=== PATIENT | male | born 1985 | race African-American/Black ===

== ENCOUNTER 2016-10-13 22:43 | Emergency (ER) | payer SELFPAY ==
[~2016-10-13] VITALS: Ht 182.9 cm; Wt 65.8 kg
[~2016-10-13 22:43] MED LIST: BUTA1CAP29 PO; CEPH-264 PO
[2016-10-13 22:55] VITALS: BP 161/80
[2016-10-13] MEDS ORDERED: ONDA4TAB10 SL (23:12)
[2016-10-13] MEDS ORDERED: FAMO-63 PO (23:12)
--- NOTE | 2016-10-13 23:12 | PHYS DOC ---
Past Medical History Past Medical History: Other Additional Past Medical Histor: HEADACHES, HX OF SKIN ABSCESSES Past Surgical History: No Surgical History Alcohol Use: Occasionally Additional Information: STATES DRANK APPROX HALF A PINT OF HENESSEY TODAY Drug Use: Marijuana Adult General Chief Complaint Chief Complaint: HEMATEMESIS/VOMITING BLOOD HPI HPI Patient is a 30 year old male who presents with complaint hematemesis. Patient states that he had one episode prior to arrival. Patient admits that earlier today he drank approximately half of the bottle of cognac. Patient states that he does not drink on a regular basis and he was drinking socially. Patient denies any lightheadedness, fever, shortness of breath, or chest pain currently. Patient states that he feels slightly nauseous but states that he feels better after vomiting. Patient states that he had bright red blood in his vomit which is what caused him concern. Patient denies any known gastrointestinal problems and patient is not currently on any blood thinners or NSAIDs. Review of Systems Review of Systems Constitutional: Denies fever or chills [] Eyes: Denies change in visual acuity, redness, or eye pain [] HENT: Denies nasal congestion or sore throat [] Respiratory: Denies cough or shortness of breath [] Cardiovascular: No additional information not addressed in HPI [] GI: Nausea, hematemesis, denies bloody stools or diarrhea [] : Denies dysuria or hematuria [] Musculoskeletal: Denies back pain or joint pain [] Integument: Denies rash or skin lesions [] Neurologic: Denies headache, focal weakness or sensory changes [] Current Medications Current Medications Current Medications Medications (Trade) Dose Ordered Sig/[facility] Start Time Stop Time Status Last Admin Dose Admin Ondansetron HCl (Zofran Odt) 4 mg 1X ONCE 10/13/16 23:15 10/13/16 23:16 DC 10/13/16 23:17 4 MG Allergies Allergies Allergies Coded Allergies Type Severity Reaction Last Updated Verified Sulfa (Sulfonamide Antibiotics) Allergy Intermediate swelling 11/26/14 No Physical Exam Physical Exam Constitutional: Alert, afebrile, no acute distress. [] HENT: Normocephalic, atraumatic, bilateral external ears normal, oropharynx moist, no oral exudates, nose normal. [] Eyes: PERRLA, EOMI, conjunctiva normal, no discharge. [] Neck: Normal range of motion, no tenderness, supple, no stridor. [] Cardiovascular:Heart rate regular rhythm, no murmur [] Lungs & Thorax: Bilateral breath sounds clear to auscultation [] Abdomen: Bowel sounds normal, soft, mild epigastric tenderness to palpation, no guarding or rebound tenderness, no masses, no pulsatile masses. [] Skin: Warm, dry, no erythema, no rash. [] Back: No tenderness, no CVA tenderness. [] Extremities: No tenderness, no cyanosis, no clubbing, ROM intact, no edema. [] Neurologic: Alert and oriented X 3, normal motor function, normal sensory function, no focal deficits noted. [] Current Patient Data Vital Signs Vital Signs Date Time Temp Pulse Resp B/P Pulse Ox O2 Delivery O2 Flow Rate FiO2 10/13/16 22:55 97.9 84 15 161/80 100 Room Air 97.9 EKG EKG Not performed [] Radiology/Procedures Radiology/Procedures Not performed [] Course & Med Decision Making Course & Med Decision Making Pertinent Labs and Imaging studies reviewed. (See chart for details) Patient appears nontoxic on exam. The patient's symptoms are likely due to recent heavy alcohol consumption. I suspect patient has developed alcoholic gastritis resulting in the patient's episode hematemesis. Patient was given Zofran in the emergency department with improvement in his nausea. The patient was recommended to continue with Pepcid and Zofran as outpatient and to continue with oral fluids. Advised follow-up in 3-4 days if symptoms not improving and return to emergency department for any worsening symptoms. Patient voiced understanding and in agreement with treatment plan. Dragon Disclaimer Dragon Disclaimer This electronic medical record was generated, in whole or in part, using a voice recognition dictation system. Departure Departure Impression: Primary Impression: Gastritis Additional Impression: Nausea and vomiting Disposition: 01 HOME, SELF-CARE Condition: STABLE Referrals: NO PCP (PCP) Patient Instructions: Alcoholic Gastritis-Brief, Nausea and Vomiting Additional Instructions: Follow-up with your primary doctor in 3-4 days of symptoms are not improving. Return to the emergency department for any worsening symptoms. Scripts Famotidine (Pepcid)20 Mg [id number] Mg PO BID #15 TAB Prov:RUBENS GERARDO MD 10/13/16 Ondansetron (Zofran Odt)4 Mg Tab.rapdis1 Tab SL Q8HRS PRN NAUSEA/VOMITING #15 TAB Prov:RUBENS GERARDO MD 10/13/16 Problem Qualifiers Primary Impression: Gastritis Gastritis type: alcoholic Chronicity: acute Gastritis bleeding: with bleeding Qualified Code: K29.21 - Alcoholic gastritis with bleeding Additional Impression: Nausea and vomiting Vomiting type: hematemesis Qualified Code: K92.0 - Hematemesis RUBENS GERARDO MD Oct 13, 2016 23:12
[2016-10-13] MEDS ORDERED: ONDANSETRON ODT 4 MG TAB.RAPDIS PO ONE (23:15)
== END 2016-10-13 23:22 | disposition home or self-care (01) ==
LOC: ER 22:43
DX: K29.21 Alcoholic gastritis with bleeding (principal); F12.10 Cannabis abuse, uncomplicated; Z88.2 Allergy status to sulfonamides
CPT/HCPCS: 99284; Q0162

== ENCOUNTER 2017-01-05 12:13 | Emergency (ER) | payer SELFPAY ==
[~2017-01-05] VITALS: Ht 165.1 cm; Wt 63.5 kg
[~2017-01-05 12:13] MED LIST changes: +FAMO-63 PO; +ONDA4TAB10 SL
[2017-01-05 12:16] VITALS: BP 129/78
--- NOTE | 2017-01-05 12:55 | PHYS DOC ---
Past Medical History Past Medical History: Other Additional Past Medical Histor: HEADACHES, HX OF SKIN ABSCESSES Past Surgical History: No Surgical History Alcohol Use: Occasionally Drug Use: Marijuana Adult General Chief Complaint Chief Complaint: COUGH HPI HPI Patient is a 31 year old male who states "I believe I may have been exposed to tuberculosis". Patient states he is homeless and this month he met a man who states that he is being treated for tuberculosis. This man is in the same homeless fdc and they "shook hands and shared a cigarette". He first met this man about 3-4 weeks ago. The man does not appear to be ill and is not under any kind of quarantine as far as the patient knows. After he met this man he noticed that he had some vomiting and also a cough, neither of those really would've worried him except that he met this man who stated he was being treated for tuberculosis. The patient is in good health. He smokes cigarettes. He states he did have a TB skin test about 3 or 4 years ago when he was in care home and it was negative. Patient is homeless. He has no PCP. Review of Systems Review of Systems Constitutional: Denies fever or chills [] Respiratory: As in history of present illness GI: He has had some intermittent vomiting for 3-4 weeks Allergies Allergies Allergies Coded Allergies Type Severity Reaction Last Updated Verified Sulfa (Sulfonamide Antibiotics) Allergy Intermediate swelling 11/26/14 No Physical Exam Physical Exam Constitutional: Well developed, well nourished, no acute distress, non-toxic appearance. Alert, mentating normally, doing something on his phone when I came into the room. HENT: Normocephalic, atraumatic, bilateral external ears normal, nose normal. [ ] Eyes: conjunctiva normal, no discharge. [] Neck: Normal range of motion, no stridor. [] Cardiovascular:Heart rate regular rhythm, no murmur [] Lungs & Thorax: Bilateral breath sounds clear to auscultation [] Skin: Warm, dry, no erythema, no rash. [] Extremities: No tenderness, no cyanosis, no clubbing, ROM intact, no edema. [] Neurologic: Alert and oriented X 3, normal motor function, normal sensory function, no focal deficits noted. [] EKG EKG [] Radiology/Procedures Radiology/Procedures [] Course & Med Decision Making Course & Med Decision Making Pertinent Labs and Imaging studies reviewed. (See chart for details) 31-year-old homeless male presents with the concern that he has been exposed to a person who stated that he was being treated for TB. I discussed with the patient the fact that people who have active, contagious TB are different subset who are quarantined, and the person may be under "treatment" but not likely actively contagious. I discussed with the patient following up with the health department for follow-up and he will be able to do that and is agreeable to that plan. [] Dragon Disclaimer Dragon Disclaimer This electronic medical record was generated, in whole or in part, using a voice recognition dictation system. Departure Departure Impression: Primary Impression: Cough in adult patient Additional Impression: Contact with and (suspected) exposure to tuberculosis Disposition: 01 HOME, SELF-CARE Condition: STABLE Referrals: NO PCP (PCP) Patient Instructions: Smoking, You Can Quit, [id number] Additional Instructions: As we discussed, I recommend that you follow-up with the health Department on Saturday and discuss your concerns with them. You may want to have a TB skin test and they can provide that for you. Health Department Phone Number: Problem Qualifiers HARISH REINA MD Jan 05, 2017 12:55
--- NOTE | 2017-01-05 13:00 | RAD ---
EXAM: Chest 2 views. HISTORY: Cough. COMPARISON: 05/22/2012. FINDINGS: Frontal and lateral views of the chest are obtained. There are no confluent infiltrates. There is no pneumothorax or pleural effusion. The heart is not enlarged. IMPRESSION: 1. No confluent infiltrates.
== END 2017-01-05 13:02 | disposition home or self-care (01) ==
LOC: ER 12:13
DX: Z20.1 Contact with and (suspected) exposure to tuberculosis (principal); F12.10 Cannabis abuse, uncomplicated; R05 Cough; R11.10 Vomiting, unspecified; F17.200 Nicotine dependence, unspecified, uncomplicated; Z88.2 Allergy status to sulfonamides
CPT/HCPCS: 71020; 99284

== ENCOUNTER 2017-12-02 10:56 | Emergency (ER) | payer MEDICAID ==
[2017-12-02 12:36] LABS: ADD MAN DIFF? NO
[2017-12-02 12:43] LABS: BASO # 0.1 x10^3/uL (0.0-0.2); BASO % 1 % (0-3); EOS # 0.1 x10^3/uL (0.0-0.7); EOS % 2 % (0-3); HEMATOCRIT 36.8 % (39.0-53.0); HEMOGLOBIN 12.5 g/dL (13.0-17.5); LYMPH # 1.7 x10^3/uL (1.0-4.8); LYMPH % 26 % (24-48); MEAN CORPUSCULAR HEMOGLOBIN 28 pg (25-35); MEAN CORPUSCULAR HGB CONC 34 g/dL (31-37); MEAN CORPUSCULAR VOLUME 84 fL (79-100); MONO # 0.7 x10^3/uL (0.0-1.1); MONO % 11 % (0-9); NEUT # 3.9 x10^3uL (1.8-7.7); NEUT % 60 % (31-73); PLATELET COUNT 218 x10^3/uL (140-400); RED BLOOD COUNT 4.39 x10^6/uL (4.30-5.70); RED CELL DISTRIBUTION WIDTH 12.8 % (11.5-14.5); WHITE BLOOD COUNT 6.6 x10^3/uL (4.0-11.0)
[2017-12-02 12:48] LABS: ANION GAP 8 (6-14); BLOOD UREA NITROGEN 13 mg/dL (8-26); BUN/CREATININE RATIO 16 (6-20); CALCIUM 8.9 mg/dL (8.5-10.1); CARBON DIOXIDE 26 mmol/L (21-32); CHLORIDE 106 mmol/L (98-107); CREATININE 0.8 mg/dL (0.7-1.3); GFR 135.6; GLUCOSE 97 mg/dL (70-99); POTASSIUM 3.8 mmol/L (3.5-5.1); SODIUM 140 mmol/L (136-145)
[2017-12-02 12:54] LABS: ALBUMIN 3.7 g/dL (3.4-5.0); ALBUMIN/GLOBULIN RATIO 0.9 (1.0-1.7); ALK PHOS 84 U/L (46-116); ALT (SGPT) 33 U/L (16-63); AST (SGOT) 26 U/L (15-37); TOTAL BILIRUBIN 0.3 mg/dL (0.2-1.0); TOTAL PROTEIN 7.7 g/dL (6.4-8.2)
== END 2017-12-02 14:14 | disposition home or self-care (01) ==
LOC: ER 10:56
DX: R60.0 Localized edema (principal); M25.521 Pain in right elbow; M25.542 Pain in joints of left hand; F12.10 Cannabis abuse, uncomplicated; Z88.2 Allergy status to sulfonamides
CPT/HCPCS: 36415; 80053; 85025; 99284

== ENCOUNTER 2020-05-22 11:02 | Emergency (ER) | payer MEDICAID ==
[~2020-05-22] VITALS: Ht 165.1 cm; Wt 84.0 kg
[~2020-05-22 11:02] MED LIST changes: +FURO-69 PO; +HYDR-3164 PO
[2020-05-22 11:10] VITALS: BP 161/97
[2020-05-22] MEDS ORDERED: HYDROcodone/APAP 5/325MG 1 TAB TABLET PO ONE (12:00)
[2020-05-22] MEDS ORDERED: ACYC800T PO (12:00)
[2020-05-22] MEDS ORDERED: predniSONE 10 MG TABLET PO ONE (12:00)
[2020-05-22] MEDS ORDERED: DIPH,PERTUSS(ACELL),TET VAC/PF 0.5 ML SYRINGE. VAX IM ONE (12:00)
[2020-05-22] MEDS ORDERED: PRED50TA PO (12:00)
[2020-05-22] MEDS ORDERED: ACYCLOVIR 200 MG CAPSULE. PO ONE (12:00)
[2020-05-22] MEDS ORDERED: CLIN150C14 PO (12:00)
[2020-05-22] MEDS ORDERED: HYDR-3164 PO (12:00)
--- NOTE | 2020-05-22 12:01 | PHYS DOC ---
Past Medical History Past Medical History: Other Additional Past Medical Histor: HEADACHES, HX OF SKIN ABSCESSES, "lymphacytic vasculitis" Past Surgical History: No Surgical History Smoking Status: Current Every Day Smoker Alcohol Use: Occasionally Drug Use: Marijuana General Adult EDM: Chief Complaint: FACE PROBLEM HPI: HPI: Patient is a 34 year old male who presents to the ED today with blisters with yellow drainage on the left side of the face that began yesterday. Patient denies any fever, coughing, congestion. He states the areas are very painful. Review of Systems: Review of Systems: Constitutional: Denies fever or chills. [] Eyes: Denies change in visual acuity. [] HENT: Denies nasal congestion or sore throat. [] Musculoskeletal: Denies back pain or joint pain. [] Integument: Reports blisters on the left side of the face Neurologic: Denies headache, focal weakness or sensory changes. [] Psychiatric: Denies depression or anxiety. [] Heart Score: Risk Factors: Risk Factors: DM, Current or recent (<one month) smoker, HTN, HLP, family history of CAD, obesity. Risk Scores: Score 0 - 3: 2.5% MACE over next 6 weeks - Discharge Home Score 4 - 6: 20.3% MACE over next 6 weeks - Admit for Clinical Observation Score 7 - 10: 72.7% MACE over next 6 weeks - Early Invasive Strategies Current Medications: Current Medications Medications (Trade) Dose Ordered Sig/[facility] Start Time Stop Time Status Last Admin Dose Admin Acetaminophen/ Hydrocodone Bitart (Lortab 5/325) 2 tab 1X ONCE 05/22/20 12:00 05/22/20 12:01 Acyclovir (Zovirax) 400 mg 1X ONCE 05/22/20 12:00 05/22/20 12:01 Diphtheria/ Tetanus/Acell Pertussis (ADACEL TDap SYRINGE) 0.5 ml ONCE ONCE 05/22/20 12:00 05/22/20 12:01 Prednisone (Prednisone) 50 mg 1X ONCE 05/22/20 12:00 05/22/20 12:01 Allergies: Allergies: Allergies Coded Allergies Type Severity Reaction Last Updated Verified Sulfa (Sulfonamide Antibiotics) Allergy Intermediate swelling 11/26/14 No Physical Exam: PE: Constitutional: Well developed, well nourished, no acute distress, non-toxic appearance. [] HENT: Normocephalic, atraumatic, bilateral external ears normal, oropharynx moist, no oral exudates, nose normal. [] Left exterior nose area and left upper lip with moderate amount of blisters, some of them are draining yellow purulent material. Skin: Warm, dry, no erythema, no rash. [] Back: No tenderness, no CVA tenderness. [] Extremities: No tenderness, no cyanosis, no clubbing, ROM intact, no edema. [] Neurologic: Alert and oriented X 3, normal motor function, normal sensory function, no focal deficits noted. [] Psychologic: Affect normal, judgement normal, mood normal. [] Current Patient Data: Vital Signs: Vital Signs Date Time Temp Pulse Resp B/P (MAP) Pulse Ox O2 Delivery O2 Flow Rate FiO2 05/22/20 11:10 98.1 77 16 161/97 (118) 99 Room Air 98.1 EKG: EKG: [] Radiology/Procedures: Radiology/Procedures: [] Course & Med Decision Making: Course & Med Decision Making Pertinent Labs and Imaging studies reviewed. (See chart for details) This is a 34-year-old male patient presented to the ED today with blisters on the left exterior nose and left upper lip that have become infected-currently impetigo. The blisters appear to have been herpes labialis initially. Tetanus was updated. Discharged on clindamycin he is allergic to Bactrim. Considering symptoms began yesterday given prescription for acyclovir to cover him for herpes labialis. Good hand hygiene emphasized. Follow-up with primary care doctor in 1 to 2 weeks. Cristiane Disclaimer: Cristiane Disclaimer: This electronic medical record was generated, in whole or in part, using a voice recognition dictation system. Departure Departure Impression: Primary Impression: Herpes labialis Additional Impression: Impetigo Disposition: 01 DC HOME SELF CARE/HOMELESS Condition: STABLE Referrals: NO PCP (PCP) follow up with your doctor in 1-2 weeks Patient Instructions: Herpes Labialis, Impetigo Additional Instructions: You were seen for skin infection. Keep the areas clean and dry. You can wash your face them regular soap and water. Maintain very good and hygiene, avoid touching your face and touching other surfaces. Take the prescribed medications as ordered ensure you complete your antibiotics. Follow-up with your doctor in 1 to 2 weeks Scripts Prednisone (PREDNISONE) 50 Mg Tablet 1 TAB PO DAILY, #5 TAB Prov: MARC MCCOY APRN 05/22/20 Hydrocodone/Apap 5-325 (NORCO 5-325 TABLET) 1 Each Tablet 1 TAB PO Q6-8HRS PRN for PAIN, #20 TAB Prov: MARC MCCOY APRN 05/22/20 Clindamycin Hcl (CLINDAMYCIN HCL) 150 Mg Capsule 3 CAP PO TID, #90 CAP Prov: MARC MCCOY APRN 05/22/20 Acyclovir (ACYCLOVIR) 800 Mg Tablet 1 TAB PO 5XDAY, #50 TAB Prov: MARC MCCOY APRN 05/22/20 MARC MCCOY APRN May 22, 2020 12:01
== END 2020-05-22 12:15 | disposition home or self-care (01) ==
LOC: ER 11:02
DX: B00.1 Herpesviral vesicular dermatitis (principal); L01.00 Impetigo, unspecified; F17.200 Nicotine dependence, unspecified, uncomplicated; F12.90 Cannabis use, unspecified, uncomplicated
CPT/HCPCS: 90471; 90715; 99284; J7512